=== PATIENT | male | born 1975 | race Caucasian/White ===

== ENCOUNTER 2022-09-25 14:38 | Emergency (ER) | payer OTHER ==
[2022-09-25 15:03] VITALS: BP 135/79; PULSE 73; RESP 18; TEMP 98.3; BMI 29.8
[2022-09-25] MEDS ORDERED: DALBAVANCIN HCL 1,500 MG in DEXTROSE 5%-WATER - 500 ML IVPB ONE (15:17)
[2022-09-25] MEDS ORDERED: DALBAVANCIN HCL 500 MG VIAL (RESTRICTED TO ID ONLY) IVPB ONE (15:30)
== END 2022-09-25 17:00 | disposition home or self-care (01) ==
LOC: FER 14:38
PROC: 0H9KXZZ Drainage of Right Lower Leg Skin, External Approach (ICD-10-PCS; principal; 2022-09-25)
PROC: 3E03329 Introduction of Other Anti-infective into Peripheral Vein, Percutaneous Approach (ICD-10-PCS; 2022-09-25)
DX: L02.511 Cutaneous abscess of right hand (principal); I89.1 Lymphangitis
CPT/HCPCS: 73130-TC-RT-FY; 99284-25; J0875